=== PATIENT | male | born 1950 | race Caucasian/White ===

== ENCOUNTER 2017-12-18 16:08 | Emergency (ER) | payer MEDICARE, OTHER ==
[2017-12-18] MEDS ORDERED: SODIUM CHLORIDE 0.9% 500 ML IV STA (16:53)
--- NOTE | 2017-12-18 17:04 | ED ---
General Adult HPI - General Chief complaint: Weakness Stated complaint: Weak/dehydration Time Seen by Provider: 12/18/17 16:29 Source: patient, RN notes reviewed, old records reviewed Mode of arrival: wheelchair Limitations: no limitations - History of Present Illness Initial comments: 67-year-old male with multiple medical problems presents for evaluation of low blood pressure and leukocytosis. Patient has history of CVA with residual left- sided deficits. [facility]. He was scheduled for an appointment with his primary care physician today laboratory studies were obtained and the patient was found to be hypotensive in the 60s systolic. Patient was sent to the emergency department for further evaluation treatment. Patient has no complaints. Denies fever or chills. Denies dysuria. Although he is incontinent of urine. Patient has no abdominal pain. No chest pain. No cough. He is accompanied by his sister who is his legal guardian. - Related Data Home Medications Medication Instructions Recorded Confirmed Aspirin 81 mg PO HS 02/28/14 12/18/17 Dipyridamole [Persantine] 25 mg PO BID 02/28/14 12/18/17 Donepezil [Aricept] 10 mg PO HS 02/28/14 12/18/17 Lisinopril [Zestril] 20 mg PO BID 02/28/14 12/18/17 Memantine [Namenda] 10 mg PO HS 02/28/14 12/18/17 Multivitamins, Thera [Multivitamin 1 tab PO HS 06/28/15 12/18/17 (formulary)] Fenofibrate,Micronized 200 mg PO QAM 07/12/16 12/18/17 [Fenofibrate] Omeprazole [PriLOSEC] 20 mg PO AC-BID 07/12/16 12/18/17 Sertraline HCl [Zoloft] 50 mg PO DAILY 07/12/16 12/18/17 Ferrous Sulfate [Feosol] 325 mg PO DAILY 12/18/17 12/18/17 Furosemide [Lasix] 20 mg PO Q48H 12/18/17 12/18/17 Insulin NPH Hum/Reg Insulin Hm 35 unit SQ BID 12/18/17 12/18/17 [Novolin 70-30 100 Unit/ml Vial] Loperamide HCl [Loperamide] 4 mg PO Q6HR PRN 12/18/17 12/18/17 Pravastatin Sodium [Pravachol] 20 mg PO HS 12/18/17 12/18/17 amLODIPine BESYLATE [Norvasc] 5 mg PO DAILY 12/18/17 12/18/17 Previous Rx's Medication Instructions Recorded Acetaminophen Tab [Tylenol] 650 mg PO Q6HR PRN #0 tab 07/20/16 Metoprolol Tartrate [Lopressor] 25 mg PO BID tab 07/20/16 Allergies Allergy/AdvReac Type Severity Reaction Status Date / Time fluoxetine HCl [From Prozac] AdvReac Diarrhea Verified 12/18/17 17:26 Review of Systems ROS Statement: Those systems with pertinent positive or pertinent negative responses have been documented in the HPI. ROS Other: All systems not noted in ROS Statement are negative. Past Medical History Past Medical History: CVA/TIA, Dementia, Diabetes Mellitus, Hyperlipidemia, Hypertension Additional Past Medical History / Comment(s): bladder issues-incontinence, wound : ulcer ball of foot under rt baby toe and bilateral leg wounds [facility] per sister legal guardian History of Any Multi-Drug Resistant Organisms: MRSA Date of last positivie culture/infection: 11/07/2014 MDRO Source:: foot Past Surgical History: Adenoidectomy, Orthopedic Surgery, Tonsillectomy Additional Past Surgical History / Comment(s): left shoulder surgery Past Anesthesia/Blood Transfusion Reactions: No Reported Reaction Past Psychological History: Anxiety, Depression Smoking Status: Former smoker Past Alcohol Use History: None Reported Past Drug Use History: None Reported - Past Family History Father Family Medical History: No Reported History Mother Family Medical History: No Reported History General Exam Limitations: no limitations General appearance: alert, in no apparent distress Head exam: Present: atraumatic, normocephalic Eye exam: Present: normal appearance, PERRL ENT exam: Present: mucous membranes dry Neck exam: Present: normal inspection. Absent: tenderness, meningismus Respiratory exam: Present: normal lung sounds bilaterally. Absent: respiratory distress, wheezes Cardiovascular Exam: Present: regular rate, normal rhythm GI/Abdominal exam: Present: soft, distended. Absent: tenderness, guarding, rebound Extremities exam: Present: normal inspection, normal capillary refill. Absent: pedal edema Neurological exam: Present: alert, oriented X3 Skin exam: Present: warm, dry, intact. Absent: cyanosis, diaphoretic Course Vital Signs 12/18/17 12/18/17 16:15 18:20 Temperature 97.0 F L Pulse Rate 58 L 54 L Respiratory 18 18 Rate Blood Pressure 133/68 155/70 O2 Sat by Pulse 93 L 99 Oximetry EKG Findings - EKG Comments: EKG Findings:: EKG: Sinus bradycardia with first-degree AV block, rate of 53, VA interval 236, QRS duration 114, QTC 424, no ST segment elevation or depression Medical Decision Making - Medical Decision Making 67-year-old male with multiple chronic medical problems presented for low blood pressure from outpatient clinic. Patient's blood pressure has remained stable throughout his stay in the emergency department. He does receive a 500 mL normal saline bolus. White blood cell count is normal, hemoglobin is stable. There is some chronic CO2 retention on labs. Electrolytes normal, troponin negative. Chest x-ray shows some mild heart failure which is unchanged from previous. Patient's caregiver is at bedside, she is eager for discharge, patient is also eager to return to the jail. They will return to emergency department with worsening or changing symptoms. - Lab Data Result diagrams: 12/18/17 17:18 12/18/17 17:18 Lab Results 12/18/17 12/18/17 12/18/17 Range/Units 17:14 17:18 17:18 WBC 9.7 (3.8-10.6) k/uL RBC 4.12 L (4.30-5.90) m/uL Hgb 11.9 L (13.0-17.5) gm/dL Hct 37.1 L (39.0-53.0) % MCV 90.2 (80.0-100.0) fL MCH 29.0 (25.0-35.0) pg MCHC 32.1 (31.0-37.0) g/dL RDW 14.6 (11.5-15.5) % Plt Count 255 (150-450) k/uL Neutrophils % 85 % Lymphocytes % 8 % Monocytes % 5 % Eosinophils % 0 % Basophils % 0 % Neutrophils # 8.3 H (1.3-7.7) k/uL Lymphocytes # 0.8 L (1.0-4.8) k/uL Monocytes # 0.5 (0-1.0) k/uL Eosinophils # 0.0 (0-0.7) k/uL Basophils # 0.0 (0-0.2) k/uL Hypochromasia Slight VBG pH (7.31-7.41) VBG pCO2 (37-51) mmHg VBG HCO3 (24-28) mmol/L Sodium (137-145) mmol/L Potassium (3.5-5.1) mmol/L Chloride (98-107) mmol/L Carbon Dioxide (22-30) mmol/L Anion Gap mmol/L BUN (9-20) mg/dL Creatinine (0.66-1.25) mg/dL Est GFR (CKD-EPI)AfAm (>60 ml/min/1.73 sqM) Est GFR (CKD-EPI)NonAf (>60 ml/min/1.73 sqM) Glucose (74-99) mg/dL POC Glucose (mg/dL) (75-99) mg/dL POC Glu [employer] ID Plasma Lactic Acid Miles (0.7-2.0) mmol/L Calcium (8.4-10.2) mg/dL Magnesium (1.6-2.3) mg/dL Total Bilirubin (0.2-1.3) mg/dL AST (17-59) U/L ALT (21-72) U/L Alkaline Phosphatase (38-126) U/L Total Creatine Kinase 40 L (55-170) U/L CK-MB (CK-2) 0.5 (0.0-2.4) ng/mL CK-MB (CK-2) Rel Index 1.3 Troponin I <0.012 (0.000-0.034) ng/mL Total Protein (6.3-8.2) g/dL Albumin (3.5-5.0) g/dL Urine Color Yellow Urine Appearance Cloudy (Clear) Urine pH 5.5 (5.0-8.0) Ur Specific Astor 1.016 (1.001-1.035) Urine Protein 2+ H (Negative) Urine Glucose (UA) 2+ H (Negative) Urine Ketones Negative (Negative) Urine Blood Trace H (Negative) Urine Nitrite Negative (Negative) Urine Bilirubin Negative (Negative) Urine Urobilinogen <2.0 (<2.0) mg/dL Ur Leukocyte Esterase Negative (Negative) Urine RBC 2 (0-5) /hpf Ur Squamous Epith Cells <1 (0-4) /hpf Urine Bacteria Rare H (None) /hpf Hyaline Casts 1 (0-2) /lpf Urine Mucus Rare H (None) /hpf Urine Yeast (Budding) Moderate H (None) /hpf 12/18/17 12/18/17 12/18/17 Range/Units 17:18 17:18 17:18 WBC (3.8-10.6) k/uL RBC (4.30-5.90) m/uL Hgb (13.0-17.5) gm/dL Hct (39.0-53.0) % MCV (80.0-100.0) fL MCH (25.0-35.0) pg MCHC (31.0-37.0) g/dL RDW (11.5-15.5) % Plt Count (150-450) k/uL Neutrophils % % Lymphocytes % % Monocytes % % Eosinophils % % Basophils % % Neutrophils # (1.3-7.7) k/uL Lymphocytes # (1.0-4.8) k/uL Monocytes # (0-1.0) k/uL Eosinophils # (0-0.7) k/uL Basophils # (0-0.2) k/uL Hypochromasia VBG pH 7.32 (7.31-7.41) VBG pCO2 61 H (37-51) mmHg VBG HCO3 31 H (24-28) mmol/L Sodium 140 (137-145) mmol/L Potassium 4.9 (3.5-5.1) mmol/L Chloride 98 (98-107) mmol/L Carbon Dioxide 27 (22-30) mmol/L Anion Gap 15 mmol/L BUN 33 H (9-20) mg/dL Creatinine 1.20 (0.66-1.25) mg/dL Est GFR (CKD-EPI)AfAm 73 (>60 ml/min/1.73 sqM) Est GFR (CKD-EPI)NonAf 63 (>60 ml/min/1.73 sqM) Glucose 212 H (74-99) mg/dL POC Glucose (mg/dL) (75-99) mg/dL POC Glu [employer] ID Plasma Lactic Acid Miles 1.6 (0.7-2.0) mmol/L Calcium 9.5 (8.4-10.2) mg/dL Magnesium 1.9 (1.6-2.3) mg/dL Total Bilirubin 0.6 (0.2-1.3) mg/dL AST 32 (17-59) U/L ALT 25 (21-72) U/L Alkaline Phosphatase 69 (38-126) U/L Total Creatine Kinase (55-170) U/L CK-MB (CK-2) (0.0-2.4) ng/mL CK-MB (CK-2) Rel Index Troponin I (0.000-0.034) ng/mL Total Protein 7.9 (6.3-8.2) g/dL Albumin 4.1 (3.5-5.0) g/dL Urine Color Urine Appearance (Clear) Urine pH (5.0-8.0) Ur Specific Astor (1.001-1.035) Urine Protein (Negative) Urine Glucose (UA) (Negative) Urine Ketones (Negative) Urine Blood (Negative) Urine Nitrite (Negative) Urine Bilirubin (Negative) Urine Urobilinogen (<2.0) mg/dL Ur Leukocyte Esterase (Negative) Urine RBC (0-5) /hpf Ur Squamous Epith Cells (0-4) /hpf Urine Bacteria (None) /hpf Hyaline Casts (0-2) /lpf Urine Mucus (None) /hpf Urine Yeast (Budding) (None) /hpf 12/18/18 Range/Units 17:23 WBC (3.8-10.6) k/uL RBC (4.30-5.90) m/uL Hgb (13.0-17.5) gm/dL Hct (39.0-53.0) % MCV (80.0-100.0) fL MCH (25.0-35.0) pg MCHC (31.0-37.0) g/dL RDW (11.5-15.5) % Plt Count (150-450) k/uL Neutrophils % % Lymphocytes % % Monocytes % % Eosinophils % % Basophils % % Neutrophils # (1.3-7.7) k/uL Lymphocytes # (1.0-4.8) k/uL Monocytes # (0-1.0) k/uL Eosinophils # (0-0.7) k/uL Basophils # (0-0.2) k/uL Hypochromasia VBG pH (7.31-7.41) VBG pCO2 (37-51) mmHg VBG HCO3 (24-28) mmol/L Sodium (137-145) mmol/L Potassium (3.5-5.1) mmol/L Chloride (98-107) mmol/L Carbon Dioxide (22-30) mmol/L Anion Gap mmol/L BUN (9-20) mg/dL Creatinine (0.66-1.25) mg/dL Est GFR (CKD-EPI)AfAm (>60 ml/min/1.73 sqM) Est GFR (CKD-EPI)NonAf (>60 ml/min/1.73 sqM) Glucose (74-99) mg/dL POC Glucose (mg/dL) 243 H (75-99) mg/dL POC Glu [employer] Mattie Jacobo Plasma Lactic Acid Miles (0.7-2.0) mmol/L Calcium (8.4-10.2) mg/dL Magnesium (1.6-2.3) mg/dL Total Bilirubin (0.2-1.3) mg/dL AST (17-59) U/L ALT (21-72) U/L Alkaline Phosphatase (38-126) U/L Total Creatine Kinase (55-170) U/L CK-MB (CK-2) (0.0-2.4) ng/mL CK-MB (CK-2) Rel Index Troponin I (0.000-0.034) ng/mL Total Protein (6.3-8.2) g/dL Albumin (3.5-5.0) g/dL Urine Color Urine Appearance (Clear) Urine pH (5.0-8.0) Ur Specific Astor (1.001-1.035) Urine Protein (Negative) Urine Glucose (UA) (Negative) Urine Ketones (Negative) Urine Blood (Negative) Urine Nitrite (Negative) Urine Bilirubin (Negative) Urine Urobilinogen (<2.0) mg/dL Ur Leukocyte Esterase (Negative) Urine RBC (0-5) /hpf Ur Squamous Epith Cells (0-4) /hpf Urine Bacteria (None) /hpf Hyaline Casts (0-2) /lpf Urine Mucus (None) /hpf Urine Yeast (Budding) (None) /hpf Disposition Clinical Impression: Hypotension, At risk for readmission to hospital Disposition: HOME SELF-CARE Condition: Fair Is patient prescribed a controlled substance at d/c from ED?: No Referrals: Conrad Sher DO [Primary Care Provider] - 1-2 days Time of Disposition: 19:14
[2017-12-18 17:26] LABS: Glucose,Whole Blood 243 mg/dL (75-99)
[2017-12-18] MEDS ORDERED: LIDOCAINE URO-JET JELLY 2% 5 ML KIT URETHRAL ONE (17:27)
[2017-12-18 17:28] LABS: VBG PH 7.32 (7.31-7.41)
[2017-12-18 17:35] LABS: Basophils % (A) 0 %; Eosinophils % (A) 0 %; HCT 37.1 % (39.0-53.0); HGB 11.9 gm/dL (13.0-17.5); Hypochromasia Slight; Lymphocytes # (A) 0.8 k/uL (1.0-4.8); Lymphocytes % (A) 8 %; MCHC 32.1 g/dL (31.0-37.0); MCV 90.2 fL (80.0-100.0); Mean Platelet Volume 8.3; Monocytes # (A) 0.5 k/uL (0-1.0); Monocytes % (A) 5 %; Neutrophils # (A) 8.3 k/uL (1.3-7.7); Neutrophils % (A) 85 %; Platelet Count 255 k/uL (150-450); RBC 4.12 m/uL (4.30-5.90); RDW 14.6 % (11.5-15.5); WBC 9.7 k/uL (3.8-10.6)
[2017-12-18 17:41] LABS: Albumin 4.1 g/dL (3.5-5.0); Calcium 9.5 mg/dL (8.4-10.2); Magnesium 1.9 mg/dL (1.6-2.3); Potassium 4.9 mmol/L (3.5-5.1); Total Bilirubin 0.6 mg/dL (0.2-1.3); Total Protein 7.9 g/dL (6.3-8.2)
[2017-12-18 17:49] LABS: Creatine Kinase 40 U/L (55-170)
[2017-12-18 17:57] LABS: Appearance,Urine Cloudy (Clear); Bacteria,Urine Rare /hpf; Bilirubin,Urine Negative (Negative); Blood,Urine Trace (Negative); Budding Yeast,Urine Moderate /hpf; Color,Urine Yellow; Glucose,Urine (UA) 2+ (Negative); Hyaline Casts,Urine 1 /lpf (0-2); Ketones,Urine Negative (Negative); Leukocyte Esterase,Urine Negative (Negative); Mucus,Urine Rare /hpf; Nitrite,Urine Negative (Negative); PH, Urine 5.5 (5.0-8.0); Protein,Urine 2+ (Negative); RBC,Urine 2 /hpf (0-5); Specific Gravity,Urine 1.016 (1.001-1.035); Squamous Epithelial Cell,Urine <1 /hpf (0-4); Urobilinogen,Urine <2.0 mg/dL (<2.0)
[2017-12-18 18:01] LABS: Creatine Kinase MB 0.5 ng/mL (0.0-2.4); Troponin I <0.012 ng/mL (0.000-0.034)
[2017-12-18 18:22] VITALS: PULSE 54
--- NOTE | 2017-12-18 18:59 | XR ---
EXAMINATION TYPE: XR chest 1V portable DATE OF EXAM: 12/18/2017 COMPARISON: 07/18/2016 HISTORY: Respiratory distress TECHNIQUE: Single frontal view of the chest is obtained. FINDINGS: Heart is enlarged. There is no heart failure. There is slight coarsening of the lung ramirez ngs. There is some infiltrate at the lateral left lung base. IMPRESSION: There is some new infiltrate at the lateral left lung base compared to old exam. Cardiom egaly and coarse lung markings could relate to mild heart failure. This is similar to old exam.
[2017-12-18 20:38] VITALS: BP 158/69; RESP 16; TEMP 97.6
== END 2017-12-18 20:45 | disposition home or self-care (01) ==
LOC: EC 16:08
DX: I95.9 Hypotension, unspecified (principal); I11.0 Hypertensive heart disease with heart failure; I50.9 Heart failure, unspecified; F03.90 Unspecified dementia, unspecified severity, without behavioral disturbance, psychotic disturbance, mood disturbance, and anxiety; E11.9 Type 2 diabetes mellitus without complications; E78.5 Hyperlipidemia, unspecified; F41.9 Anxiety disorder, unspecified; F32.9 Major depressive disorder, single episode, unspecified; Z87.891 Personal history of nicotine dependence; Z86.73 Personal history of transient ischemic attack (TIA), and cerebral infarction without residual deficits; Z86.14 Personal history of Methicillin resistant Staphylococcus aureus infection; Z79.4 Long term (current) use of insulin; Z79.82 Long term (current) use of aspirin; Z79.899 Other long term (current) drug therapy; Z88.8 Allergy status to other drugs, medicaments and biological substances
CPT/HCPCS: 36415; 71045; 80053; 81001; 82550; 82553; 82803; 83605; 83735; 84484; 85025; 87040; 93005; 99285

== ENCOUNTER → 2018-08-21 | Outpatient (CLI) | payer MEDICARE ==
[2018-08-21 13:13] LABS: Blood Urea Nitrogen 30 mg/dL (9-20)
--- NOTE | 2018-08-21 15:38 | CT ---
EXAMINATION TYPE: CT angio abd aorta w/Runoff DATE OF EXAM: 08/21/2018 COMPARISON: None HISTORY: 68-year-old male with peripheral vascular disease, Left foot discoloration and lack of circu lation in legs TECHNIQUE: Contiguous axial scanning of the abdomen and pelvis with bilateral lower extremity runoff performed with IV Contrast, patient injected with 125 mL of Isovue 370. Coronal/sagittal reconstructi ons performed. 3-D reconstructions generated on a dedicated workstation. CT DLP: 1873 mGycm Automated exposure control for dose reduction was used. FINDINGS: Heart mildly enlarged with coronary vessel calcifications. Moderate bilateral gynecomastia. Dependen t and hazy areas of atelectasis in the visualized lower lungs. Tiny hiatal hernia. No focal liver lesion or biliary ductal dilatation. Gallbladder, adrenal glands, spleen with normal mottled appearance of arterial phase imaging, and finn creas show no gross abnormality. The right kidney is atrophic. Bilateral nonobstructing renal calculi, 3 on the right measuring up to 5 mm and 3 on the left measuring up to 6 mm. There is partially duplicated left renal collecting syst em. The 2 ureters joining at the midureteric level. The ureters are mildly patulous and suggest mild urothelial thickening. A 6 mm calculus in the lower left renal collecting system appears to be making its way into the renal pelvis. Reference axial image 54. No dilated small bowel, free fluid, or free air. Normal appendix. No mesenteric or retroperitoneal ly mphadenopathy. Scattered [id number] stool. Occasional sigmoid diverticulosis. Redundant sigmoid colon. There i s wall thickening and moderate surrounding inflammation extending from the distal sigmoid to the rect um which should be correlated clinically and with direct visualization when patient able. Multiple circumferential bladder wall thickening. No abnormal fluid collection the pelvis or pelvic l ymphadenopathy. Mild presacral edema. 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 Lower descending thoracic aorta ectatic and 2.8 cm. Some reflux of contrast into the hepatic veins. Upper abdominal aorta measures 2.5 cm which is borderline ectatic. Moderate atherosclerotic plaque and calcifications infrarenal abdominal aorta without evidence for an eurysm. Suspect significant atherosclerotic changes at the origin of the right renal artery. Possible renal a rtery stenosis. Scattered mild to moderate atherosclerotic calcifications are present throughout the iliac vessels. Right: Right common femoral artery is patent. Its bifurcation and deep femoral artery are patent. The superficial femoral artery is patent but with segmental areas of moderate atherosclerotic stenosi s especially at the level of the adductor hiatus where a severe narrowing is present, axial image 152 . The right popliteal artery shows segmental mild atherosclerotic narrowing, moderate just below the le lay of the knee joint line, axial image 185. Atherosclerotic changes at the proximal anterior tibial artery. The anterior tibial artery is not see n just after its takeoff. Severe atherosclerotic narrowing in the tibial peroneal trunk, axial image 198. Both peroneal and pos terior tibial arteries are diminutive but with runoff into the foot. Left: The left common femoral artery is patent. Its bifurcation with the deep femoral artery is patent but the deep femoral artery shows segmental mi ld atherosclerotic narrowing. The superficial femoral artery shows segmental areas of mild or moderate narrowing, greatest at the u pper thigh level, axial image 114 and also at the level of the adductor hiatus, axial image 144. The popliteal artery shows mild atherosclerotic calcifications. The tibial artery shows focal atherosclerotic calcifications just after its origin and then is no cinthia angie seen. The tibial peroneal trunk as well as the acromial and posterior tibial arteries are markedly diminuti ve but show runoff into the foot. Bones: Diffuse muscular atrophy of the feet and of much of the calf musculature on both sides. Suspect sever e periarticular osteopenia possibly from disuse. IMPRESSION: ABDOMEN/PELVIS: 1. PARTIALLY DUPLICATED LEFT RENAL COLLECTING SYSTEM. THERE IS MILD GENERALIZED UROTHELIAL THICKENING THAT SUGGESTS NONSPECIFIC INFLAMMATION. CORRELATE TO EXCLUDE UTI. 2. MODERATE CIRCUMFERENTIAL WALL THICKENING WITH SURROUNDING INFLAMMATION OF THE DISTAL SIGMOID AND R ECTUM. CORRELATE FOR ANY SYMPTOMS OF COLITIS. RECOMMEND DIRECT VISUALIZATION TO EXCLUDE UNDERLYING NE OPLASM. 3. NONOBSTRUCTIVE BILATERAL RENAL CALCULI MEASURING UP TO 6 MM. THE 6 MM CALCULUS IN THE LEFT KIDNEY HAS MADE ITS WAY INTO A MINOR CALYX AND MAY PASS INTO THE URETER. 4. CIRCUMFERENTIAL BLADDER WALL THICKENING. CORRELATE TO EXCLUDE CYSTITIS. VASCULATURE: Right: 1. Segmental areas of moderate atherosclerotic narrowing of the superficial femoral artery with a sev ere focal stenosis at the adductor hiatus. 2. There is mild atherosclerotic calcification throughout the popliteal artery with moderate focal st enosis just below the level of the knee joint line. 3. The anterior tibial artery is not seen just after its takeoff. There is a severe narrowing at the tibioperoneal trunk and both posterior tibial and peroneal arteries are markedly diminutive but show faint runoff into the foot. Left: 4. There is focal moderate atherosclerotic stenosis in the superficial femoral artery at the upper th igh level and at the adductor hiatus. 5. The anterior tibial artery is not seen just after its origin. The tibioperoneal trunk as well as b oth peroneal and posterior tibial arteries are markedly diminutive but show faint runoff into the meghan t.
== END | disposition home or self-care (01) ==
LOC: RADCTMAIN 12:38
PROVIDERS: ATTEND Thoracic Surgery (Cardiothoracic Vascular Surgery)
DX: I70.209 Unspecified atherosclerosis of native arteries of extremities, unspecified extremity (principal); I74.3 Embolism and thrombosis of arteries of the lower extremities; I77.1 Stricture of artery; N20.0 Calculus of kidney; Q63.8 Other specified congenital malformations of kidney; K52.9 Noninfective gastroenteritis and colitis, unspecified; N32.89 Other specified disorders of bladder; K62.89 Other specified diseases of anus and rectum; L97.521 Non-pressure chronic ulcer of other part of left foot limited to breakdown of skin
CPT/HCPCS: 82565; 84520; 75635; 36415; Q9967